=== PATIENT | female | born 1965 | race African-American/Black ===

== ENCOUNTER 2017-03-10 11:53 | Observation (INO) | payer MEDICARE, OTHER ==
[~2017-03-10] VITALS: Ht 162.6 cm; Wt 105.0 kg
[~2017-03-10 11:53] MED LIST: CLIN1CAP6 PO; EFAV200 PO; LORTA5 PO; TRUV200300 PO
[2017-03-10 12:04] VITALS: BP 183/102; PULSE 61; RESP 24; TEMP 98.3; O2SAT 100
--- NOTE | 2017-03-10 12:13 | PD ---
HPI Chief Complaint: Chest Pain Time Seen by Provider: 12:05 Travel History International Travel<30 days: No Contact w/Intl Traveler<30days: No History of Present Illness HPI Patient is a 51-year-old female presenting to the emergency via EMS for evaluation of chest pain. Patient states the pain started 2 days ago, has gotten significantly worse this morning. Patient reports her pain an 8 out of 10 pressure-like. She reports associated shortness of breath and diaphoresis. Patient states it's hard to breathe and she cannot lay flat. She states the chest pain is midsternal radiating to her left chest wall and back. She has felt nauseated but has not vomited. She reports a weird metallic taste in her mouth. She denies any abdominal pain, fever, chills, diarrhea. Patient's past medical history significant for hypertension, hyperlipidemia, HIV positive and she is compliant with anti-viral's. Patient was given 162 mg of aspirin en route per [facility] Past Medical History Arthritis: Yes (have in knees a few years ago) High Cholesterol: Yes Hypertension: Yes Immune Disorder: Yes (HIV) Neurologic: No Social History Alcohol Use: No Tobacco Use: No Substance Use: No Allergies-Medications (Allergen,Severity, Reaction): Coded Allergies: No Known Allergies (Unverified , 03/10/17) Reported Meds & Prescriptions Reported Meds & Active Scripts Active Reported Odefsey (Paoaxuxnpgmfc-Hzundsxztsr-Dmvdoaqls Alafenam) 200-200-25 Mg Tab 1 Tab PO DAILY Atorvastatin (Atorvastatin Calcium) 20 Mg Tab 20 Mg PO HS Lisinopril 20 Mg Tab 20 Mg PO DAILY Amlodipine (Amlodipine Besylate) 5 Mg Tab 5 Mg PO DAILY Review of Systems Except as stated in HPI: all other systems reviewed are Neg HENT: No: Lightheadedness Cardiovascular: Positive: Chest Pain or Discomfort, Diaphoresis, Dyspnea on exertion, No: Edema Respiratory: Positive: Shortness of Breath, Pleuritic Pain, No: Cough, Wheezing Gastrointestinal: Positive: Nausea, No: Vomiting, Diarrhea, Abdominal Pain Genitourinary: No: Dysuria Musculoskeletal: No: Myalgias Neurologic: Positive: Weakness, No: Dizziness, Syncope, Change in Mentation Physical Exam Narrative GENERAL: Well-developed, well-nourished, alert female. Appears uncomfortable, in no acute distress. SKIN: Warm and dry. HEAD: Atraumatic. Normocephalic. EYES: Pupils equal and round. No scleral icterus. No injection or drainage. ENT: No nasal bleeding or discharge. Mucous membranes pink and moist. NECK: Trachea midline. No JVD. CARDIOVASCULAR: Regular rate and rhythm. RESPIRATORY: No accessory muscle use. Mildly tachypneic, diminished in bases due to poor inspiratory effort. Breath sounds are equal, no wheezes, rhonchi, rales noted. GASTROINTESTINAL: Abdomen soft, non-tender, nondistended. Hepatic and splenic margins not palpable. MUSCULOSKELETAL: Extremities without clubbing, cyanosis, or edema. No obvious deformities. NEUROLOGICAL: Awake and alert. No obvious cranial nerve deficits. Motor grossly within normal limits. Five out of 5 muscle strength in the arms and legs. Normal speech. PSYCHIATRIC: Appropriate mood and affect; insight and judgment normal. Data Data Last Documented VS Vital Signs Date Time Temp Pulse Resp B/P (MAP) Pulse Ox O2 Delivery O2 Flow Rate FiO2 03/10/17 12:29 100 Room Air 03/10/17 12:29 20 03/10/17 12:04 98.3 61 183/102 (129) Orders Orders Electrocardiogram (03/10/17 12:03) B-Type Natriuretic Peptide (03/10/17 12:03) Ckmb (Isoenzyme) Profile (03/10/17 12:03) Complete Blood Count With Diff (03/10/17 12:03) Comprehensive Metabolic Panel (03/10/17 12:03) Magnesium (Mg) (03/10/17 12:03) Prothrombin Time / Inr (Pt) (03/10/17 12:03) Act Partial Throm Time (Ptt) (03/10/17 12:03) Troponin I (03/10/17 12:03) Chest, Single Ap (03/10/17 12:03) Ecg Monitoring (03/10/17 12:03) Bilateral Bp Monitoring (03/10/17 12:03) Iv Access Insert/Monitor (03/10/17 12:03) Oximetry (03/10/17 12:03) Oxygen Administration (03/10/17 12:03) Aspirin Chew (Aspirin Chew) (03/10/17 12:15) Morphine Inj (Morphine Inj) (03/10/17 12:15) Sodium Chloride 0.9% Flush (Ns Flush) (03/10/17 12:15) Ct Pulmonary Angiogram (03/10/17 12:03) Ondansetron Inj (Zofran Inj) (03/10/17 12:15) CKMB (03/10/17 12:20) CKMB% (03/10/17 12:20) Ketorolac Inj (Toradol Inj) (03/10/17 13:30) Iohexol 350 Inj (Omnipaque 350 Inj) (03/10/17 16:50) Admit Order (Ed Use Only) (03/10/17 17:34) Activity Bed Rest With Brp (03/10/17 17:34) Vital Signs (Adult) Q4H (03/10/17 17:34) Cardiac Rhythm .As Directed (03/10/17 17:34) Notify Dr: Other .PRN (03/10/17 17:34) Notify Dr. Parameters (03/10/17 17:34) Resp Oxygen Nasal Cannula (03/10/17 ) Ckmb (Isoenzyme) Profile (03/10/17 17:34) Ckmb (Isoenzyme) Profile (03/10/17 20:34) Troponin I (03/10/17 17:34) Troponin I (03/10/17 20:34) Electrocardiogram (03/10/17 17:34) Electrocardiogram (03/10/17 20:34) ^ Obtain (03/10/17 17:34) Sodium Chloride 0.9% Flush (Ns Flush) (03/10/17 17:45) Sodium Chloride 0.9% Flush (Ns Flush) (03/10/17 21:00) Acetaminophen (Tylenol) (03/10/17 17:45) Morphine Inj (Morphine Inj) (03/10/17 17:45) Ondansetron Inj (Zofran Inj) (03/10/17 17:45) Pantoprazole (Protonix) (03/11/17 09:00) Thread Separator / Telemetry VICENTE.Q8H (03/10/17 17:34) Hydralazine Inj (Apresoline Inj) (03/10/17 17:45) Labs Laboratory Tests Test 03/10/17 12:20 White Blood Count 4.4 TH/MM3 Red Blood Count 4.29 MIL/MM3 Hemoglobin 13.6 GM/DL Hematocrit 41.2 % Mean Corpuscular Volume 96.0 FL Mean Corpuscular Hemoglobin 31.6 PG Mean Corpuscular Hemoglobin Concent 32.9 % Red Cell Distribution Width 12.9 % Platelet Count 303 TH/MM3 Mean Platelet Volume 8.2 FL Neutrophils (%) (Auto) 50.1 % Lymphocytes (%) (Auto) 38.0 % Monocytes (%) (Auto) 8.9 % Eosinophils (%) (Auto) 2.3 % Basophils (%) (Auto) 0.7 % Neutrophils # (Auto) 2.2 TH/MM3 Lymphocytes # (Auto) 1.7 TH/MM3 Monocytes # (Auto) 0.4 TH/MM3 Eosinophils # (Auto) 0.1 TH/MM3 Basophils # (Auto) 0.0 TH/MM3 CBC Comment DIFF FINAL Differential Comment Prothrombin Time 10.6 SEC Prothromb Time International Ratio 1.0 RATIO Activated Partial Thromboplast Time 25.4 SEC Blood Urea Nitrogen 8 MG/DL Creatinine 1.09 MG/DL Random Glucose 88 MG/DL Total Protein 7.6 GM/DL Albumin 3.3 GM/DL Calcium Level 8.4 MG/DL Magnesium Level 1.8 MG/DL Alkaline Phosphatase 70 U/L Aspartate Amino Transf (AST/SGOT) 22 U/L Alanine Aminotransferase (ALT/SGPT) 27 U/L Total Bilirubin 0.3 MG/DL Sodium Level 142 MEQ/L Potassium Level 4.0 MEQ/L Chloride Level 109 MEQ/L Carbon Dioxide Level 25.8 MEQ/L Anion Gap 7 MEQ/L Estimat Glomerular Filtration Rate 64 ML/MIN Total Creatine Kinase 115 U/L Creatine Kinase MB LESS THAN 0.5 NG/ML Troponin I LESS THAN 0.02 NG/ML B-Type Natriuretic Peptide 38 PG/ML MDM Medical Decision Making Medical Screen Exam Complete: Yes Emergency Medical Condition: Yes Medical Record Reviewed: Yes Interpretation(s) Last Impressions Chest X-Ray 03/10/17 1203 Signed Impressions: Service Date/Time: Friday, March 10, 2017 12:15 - CONCLUSION: No acute cardiopulmonary abnormality is identified. Jovanni Barroso MD CT Angiography 03/10/17 1203 Signed Impressions: Service Date/Time: Friday, March 10, 2017 14:55 - CONCLUSION: No evidence of pulmonary embolism Jovanni Holbrook MD Laboratory Tests Test 03/10/17 12:20 White Blood Count 4.4 TH/MM3 Red Blood Count 4.29 MIL/MM3 Hemoglobin 13.6 GM/DL Hematocrit 41.2 % Mean Corpuscular Volume 96.0 FL Mean Corpuscular Hemoglobin 31.6 PG Mean Corpuscular Hemoglobin Concent 32.9 % Red Cell Distribution Width 12.9 % Platelet Count 303 TH/MM3 Mean Platelet Volume 8.2 FL Neutrophils (%) (Auto) 50.1 % Lymphocytes (%) (Auto) 38.0 % Monocytes (%) (Auto) 8.9 % Eosinophils (%) (Auto) 2.3 % Basophils (%) (Auto) 0.7 % Neutrophils # (Auto) 2.2 TH/MM3 Lymphocytes # (Auto) 1.7 TH/MM3 Monocytes # (Auto) 0.4 TH/MM3 Eosinophils # (Auto) 0.1 TH/MM3 Basophils # (Auto) 0.0 TH/MM3 CBC Comment DIFF FINAL Differential Comment Prothrombin Time 10.6 SEC Prothromb Time International Ratio 1.0 RATIO Activated Partial Thromboplast Time 25.4 SEC Blood Urea Nitrogen 8 MG/DL Creatinine 1.09 MG/DL Random Glucose 88 MG/DL Total Protein 7.6 GM/DL Albumin 3.3 GM/DL Calcium Level 8.4 MG/DL Magnesium Level 1.8 MG/DL Alkaline Phosphatase 70 U/L Aspartate Amino Transf (AST/SGOT) 22 U/L Alanine Aminotransferase (ALT/SGPT) 27 U/L Total Bilirubin 0.3 MG/DL Sodium Level 142 MEQ/L Potassium Level 4.0 MEQ/L Chloride Level 109 MEQ/L Carbon Dioxide Level 25.8 MEQ/L Anion Gap 7 MEQ/L Estimat Glomerular Filtration Rate 64 ML/MIN Total Creatine Kinase 115 U/L Creatine Kinase MB LESS THAN 0.5 NG/ML Troponin I LESS THAN 0.02 NG/ML B-Type Natriuretic Peptide 38 PG/ML Vital Signs Date Time Temp Pulse Resp B/P (MAP) Pulse Ox O2 Delivery O2 Flow Rate FiO2 03/10/17 12:29 100 Room Air 03/10/17 12:29 20 100 Room Air 03/10/17 12:04 98.3 61 24 183/102 (129) 100 Differential Diagnosis ACS versus USA versus pleurisy versus pneumonia versus pulmonary embolism versus other Narrative Course Patient is a 51-year-old female presented with 2 days of increasing shortness of breath and chest pain. Patient is unable to lay flat. She appears to be uncomfortable on arrival however her vital signs are stable. Labs and imaging ordered and pending. Morphine ordered for pain. CBC with no acute findings Chemistry reviewed, no acute findings identified. BNP unremarkable Cardiac enzymes are negative 1 set Chest x-ray shows no acute disease CT pulmonary angiogram with no pulmonary embolism, this is read by the radiologist. Patient reported mild improvement after the administration of morphine, her pain was further improved after the administration of Toradol. Due to patient's presenting complaint, progression of symptoms, past medical history she will be admitted to the chest pain center. Patient is agreeable, orders placed. Diagnosis Primary Impression: Chest pain Qualified Codes: R07.9 - Chest pain, unspecified Admitting Information Admitting Physician Requests: Observation Condition: Stable Cecilia Noble Mar 10, 2017 12:13
[2017-03-10] MEDS ORDERED: SODIUM CHLORIDE 0.9% FLUSH 10 ML FLUSH IVF PRN (12:15)
[2017-03-10] MEDS ORDERED: ONDANSETRON HCL 4 MG/2 ML VIAL IV PUSH ONE (12:15)
[2017-03-10] MEDS ORDERED: ASPIRIN 81 MG CHEW TAB PO ONE (12:15)
[2017-03-10] MEDS ORDERED: MORPHINE SULFATE 4 MG/ML INJ IV PUSH ONE (12:15)
[2017-03-10 12:29] VITALS: RESP 20; O2SAT 100
--- NOTE | 2017-03-10 12:37 | RADRPT ---
EXAM DATE/TIME: 03/10/2017 12:15 [facility] COMPARISON: CHEST SINGLE AP, December 31, 2014, 14:53. INDICATIONS : Chest pain. MEDICAL HISTORY : None. SURGICAL HISTORY : None. ENCOUNTER: Initial ACUITY: 2 days PAIN SCORE: 10/10 LOCATION: Left middle chest FINDINGS: Portable AP view of the chest demonstrates a normal-sized cardiac silhouette. No effusion, consolidat ion, or pneumothorax is visualized. The bones and soft tissues demonstrate no acute abnormality. CONCLUSION: No acute cardiopulmonary abnormality is identified. Jovanni Barroso MD on March 10, 2017 at 12:35 Board Certified Radiologist. This report was verified electronically.
[2017-03-10 12:42] LABS: AUTOMATED NEUTROPHIL # 2.2 TH/MM3 (1.8-7.7); BASOPHIL % 0.7 % (0.0-2.0); EOSINOPHIL # 0.1 TH/MM3 (0-0.4); EOSINOPHIL % 2.3 % (0.0-4.0); HEMATOCRIT 41.2 % (35.0-46.0); HEMO FLAGS DIFF FINAL; LYMPHOCYTE # 1.7 TH/MM3 (1.0-4.8); MEAN CORPUSCULAR HEMOGLOBIN 31.6 PG (27.0-34.0); MEAN CORPUSCULAR HGB CONC 32.9 % (32.0-36.0); MONO % 8.9 % (0.0-8.0); NEUT % 50.1 % (16.0-70.0); PLATELET COUNT 303 TH/MM3 (150-450); RED BLOOD COUNT 4.29 MIL/MM3 (4.00-5.30); RED CELL DISTRIBUTION WIDTH 12.9 % (11.6-17.2); WHITE BLOOD COUNT 4.4 TH/MM3 (4.0-11.0)
[2017-03-10 12:44] LABS: APTT (PATIENT) 25.4 SEC (24.3-30.1); PROTHROMBIN TIME - PATIENT 10.6 SEC (9.8-11.6)
[2017-03-10] MEDS ORDERED: LISI-515 PO (12:47)
[2017-03-10] MEDS ORDERED: ATOR20TA15 PO (12:47)
[2017-03-10] MEDS ORDERED: AMLO5TAB2 PO (12:47)
[2017-03-10] MEDS ORDERED: EMTR1TAB2 PO (12:47)
[2017-03-10 12:48] LABS: ALT (GPT) 27 U/L (10-53); ANION GAP 7 MEQ/L (5-15); AST (GOT) 22 U/L (15-37); BICARBONATE 25.8 MEQ/L (21.0-32.0); BLOOD UREA NITROGEN 8 MG/DL (7-18); CHLORIDE 109 MEQ/L (98-107); GLOMERULAR FILTRATION RATE 64 ML/MIN (>89); MAGNESIUM 1.8 MG/DL (1.5-2.5); SODIUM (NA) 142 MEQ/L (136-145)
[2017-03-10 12:52] LABS: ALKALINE PHOSPHATASE 70 U/L (45-117); CREATINE KINASE 115 U/L (26-192); TOTAL BILIRUBIN ADULT 0.3 MG/DL (0.2-1.0)
[2017-03-10 13:05] LABS: CKMB LESS THAN 0.5 NG/ML (0.5-3.6)
[2017-03-10] MEDS ORDERED: KETOROLAC TROMETHAMINE 30 MG/ML (IVP) VIAL IV PUSH ONE (13:30)
[2017-03-10] MEDS ORDERED: IOHEXOL 350 MG/ML 10 ML VIAL (for RAD DIAG) IVCONTRAST ONE (16:50)
--- NOTE | 2017-03-10 17:23 | RADRPT ---
EXAM DATE/TIME: 03/10/2017 14:55 [facility] COMPARISON: No previous studies available for comparison. INDICATIONS : Left side chest pain IV CONTRAST: 75 cc Omnipaque 350 (iohexol) IV RADIATION DOSE: 21.52 CTDIvol (mGy) MEDICAL HISTORY : Hypertension. HIV. SURGICAL HISTORY : None. ENCOUNTER: Initial ACUITY: 2 days PAIN SCALE: 5/10 LOCATION: Left chest TECHNIQUE: Volumetric scanning of the chest was performed using a pulmonary embolism protocol MIP images were re constructed. Using automated exposure control and adjustment of the mA and/or kV according to patien t size, radiation dose was kept as low as reasonably achievable to obtain optimal diagnostic quality images. DICOM format image data is available electronically for review and comparison. Follow-up recommendations for detected pulmonary nodules are based at a minimum on nodule size and pa tient risk factors according to Fleischner Society Guidelines. FINDINGS: PULMONARY ARTERIES: No filling defects are seen in the pulmonary arteries through the segmental level. LUNGS: Minimal basilar atelectasis. PLEURAE: There is no pleural thickening or pleural effusion. MEDIASTINUM: There is good visualization of the great vessels of the middle mediastinum. No evidence of mediastin al or hilar adenopathy/mass. MUSCULOSKELETAL: Within normal limits for patient age. MISCELLANEOUS: The visualized upper abdominal organs demonstrate no acute abnormality. CONCLUSION: No evidence of pulmonary embolism Jovanni Holbrook MD on March 10, 2017 at 17:17 Board Certified Radiologist. This report was verified electronically.
[2017-03-10] MEDS ORDERED: SODIUM CHLORIDE 0.9% FLUSH 10 ML FLUSH IV FLUSH PRN (17:45)
[2017-03-10] MEDS ORDERED: ONDANSETRON HCL 4 MG/2 ML VIAL IV PUSH PRN (17:45)
[2017-03-10] MEDS ORDERED: hydrALAZINE HCL 20 MG/ML VIAL IV PUSH ONE (17:45)
[2017-03-10] MEDS ORDERED: ACETAMINOPHEN 500 MG CPLT PO PRN (17:45)
[2017-03-10] MEDS ORDERED: MORPHINE SULFATE 4 MG/ML INJ IV PUSH PRN (17:45)
[2017-03-10 18:57] VITALS: BP 146/87; PULSE 52; RESP 18; O2SAT 100
[2017-03-10 20:25] LABS: CREATINE KINASE 115 U/L (26-192)
[2017-03-10 20:37] LABS: CKMB 0.6 NG/ML (0.5-3.6)
[2017-03-10 21:33] VITALS: BP 134/74; PULSE 52; RESP 18; TEMP 98.4; O2SAT 100
[2017-03-10 23:40] LABS: CREATINE KINASE 110 U/L (26-192)
[2017-03-11] VITALS (7 sets, daily range): BP systolic 115–127; BP diastolic 64–73; PULSE 51–57; RESP 17–20; TEMP 98–98.5; O2SAT 95–98
[2017-03-11] MEDS: NITROGLYCERIN 2% OINT 1 GM PACKET TOPICAL SCH ×2 (00:37→06:00)
[2017-03-11] MEDS: SODIUM CHLORIDE 0.9% FLUSH 10 ML FLUSH IV FLUSH SCH ×2 (00:38→07:51)
[2017-03-11] MEDS ORDERED: ASPIRIN 81 MG CHEW TAB PO ONE (01:08)
[2017-03-11] MEDS: MORPHINE SULFATE 4 MG/ML INJ IV PRN ×2 (02:33→07:55)
[2017-03-11] MEDS ORDERED: KETOROLAC TROMETHAMINE 30 MG/ML (IVP) VIAL IVP ONE (08:00)
--- NOTE | 2017-03-11 08:29 | HHI.DCPOC ---
Discharge Care Plan Diagnosis: (1) Hypertension (2) Hyperlipidemia (3) Chest pain (4) HIV (human immunodeficiency virus infection) Goals to Promote Your Health * To prevent worsening of your condition and complications * To maintain your health at the optimal level Directions to Meet Your Goals Take your medications as prescribed Follow your dietary instruction Follow activity as directed Keep your appointments as scheduled Take your immunizations and boosters as scheduled If your symptoms worsen call your PCP, if no PCP go to Urgent Care Center or Emergency Room Smoking is Dangerous to Your Health. Avoid second hand smoke Call the 24-hour hour crisis hotline for domestic abuse at Conor Gomez Mar 11, 2017 08:29
[2017-03-11] MEDS ORDERED: PANTOPRAZOLE SOD 40 MG DELAYED RELEASE TAB PO SCH (09:00)
[2017-03-11] MEDS ORDERED: ASPIRIN 81 MG CHEW TAB PO SCH (09:00)
--- NOTE | 2017-03-11 09:43 | EKG ---
Date Performed: 03/10/2017 Time Performed: 19:13:52 PTAGE: 51 years EKG: SINUS BRADYCARDIA Compared to prior tracing no significant change BORDERLINE ECG PREVIOUS TRACING : 03/10/2017 12.06 DOCTOR: Jovani Paredes Interpretating Date/Time 03/11/2017 09:43:08
--- NOTE | 2017-03-11 09:43 | EKG ---
Date Performed: 03/10/2017 Time Performed: 12:06:52 PTAGE: 51 years EKG: SINUS BRADYCARDIA Compared to previous tracing, sinus rate is slower BORDERLINE ECG PREVIOUS TRACING : 12/31/14 @ 1500 DOCTOR: Jovani Paredes Interpretating Date/Time 03/11/2017 09:43:01
--- NOTE | 2017-03-11 09:48 | EKG ---
Date Performed: 03/10/2017 Time Performed: 22:33:26 PTAGE: 51 years EKG: SINUS BRADYCARDIA MODERATE INTRAVENTRICULAR CONDUCTION DELAY BORDERLINE ECG AGREE NO SIG CH AMBER PREVIOUS TRACING : 03/10/2017 19.13 DOCTOR: Joe Parrish Interpretating Date/Time 03/11/2017 09:47:52
--- NOTE | 2017-03-11 12:24 | HHI.HP ---
HPI Primary Care Physician Unknown Chief Complaint Chest pain History of Present Illness This is a 51-year-old female that presents to ED with a complaint of 5 days a constant chest discomfort. She states it began while she got up quickly to put fabric softener in her washing machine. The discomfort has never left. Little shortness of breath area discomfort is worsened with certain movements. Denies nausea or diaphoresis. Denies history of CAD. Denies recent illness. Denies recent travel. Review of Systems General: Patient denies fevers, chills recent, and recent travel HEENT: Patient denies headache, sore throat, difficulty swallowing. Cardiovascular: Has the chest discomfort as mentioned above. Denies sensation of heart beating rapidly or irregularly. No syncope. Denies diaphoresis. Respiratory: Occasional shortness of breath. Denies inspirational chest discomfort. Denies coughing wheezing or hemoptysis. GI: Patient denies nausea, vomiting, diarrhea, abdominal pain, bloody stools. Musculoskeletal: Patient denies joint pain or edema. Denies calf pain or edema. Neurovascular: Patient denies numbness, tingling, weakness in extremities. Denies headache. Endocrine: Denies polyuria and polydipsia. Hematologic: Denies easy bruising. Skin: Denies rash or itching. Past Family Social History Allergies: Coded Allergies: No Known Allergies (Unverified , 03/10/17) Past Medical History Hypertension, hyperlipidemia, and HIV which she states it diagnosed 2003. Reports compliance with her medications. Denies diabetes and CAD. Past Surgical History Noncontributory. Reported Medications Reported Meds & Active Scripts Active Reported Odefsey (Tdeaxrqgdszde-Ktngiwvhcwj-Tgxllxczw Alafenam) 200-200-25 Mg Tab 1 Tab PO DAILY Atorvastatin (Atorvastatin Calcium) 20 Mg Tab 20 Mg PO HS Lisinopril 20 Mg Tab 20 Mg PO DAILY Amlodipine (Amlodipine Besylate) 5 Mg Tab 5 Mg PO DAILY Family History Denies family history of CAD. Social History Patient quit smoking 1 year ago but prior that she smoked one third pack of cigarettes daily for 10 years. Has occasional marijuana. Denies illicit drugs. Physical Exam Vital Signs Vital Signs Date Time Temp Pulse Resp B/P (MAP) Pulse Ox O2 Delivery O2 Flow Rate FiO2 03/11/17 09:59 20 03/11/17 09:48 21 03/11/17 09:09 54 03/11/17 07:07 98.5 56 17 127/71 (89) 98 03/11/17 06:26 21 03/11/17 04:00 52 03/11/17 03:41 98.0 51 18 124/73 (90) 95 03/11/17 02:29 98.2 55 18 115/64 (81) 97 03/11/17 00:00 57 03/10/17 21:33 98.4 52 18 134/74 (94) 100 03/10/17 18:57 52 18 146/87 (106) 100 Room Air 03/10/17 12:29 100 Room Air 03/10/17 12:29 20 100 Room Air Physical Exam GENERAL: This is a well-nourished, well-developed patient, in no apparent distress. Patient speaks in clear complete sentences. Patient is pleasant. HEENT: Head is atraumatic and normocephalic. Neck is supple without lymphadenopathy and trachea is midline. No JVD or carotid bruits. CARDIOVASCULAR: Regular rate and rhythm without murmurs, gallops, or rubs. RESPIRATORY: Clear to auscultation. Breath sounds equal bilaterally. No wheezes , rales, or rhonchi. Chest wall is tender over the sternum which reproduces the discomfort she has been having. No use of accessory muscles. GASTROINTESTINAL: Abdomen is nontender, nondistended. Abdomen soft. No obvious pulsatile mass or bruit. No CVA tenderness. Strong femoral pulses bilaterally. Normal bowel sounds in all quadrants. MUSCULOSKELETAL: Patient is moving upper and lower extremities freely. No calf tenderness or edema, no Homans sign. Strong pulses in upper and lower extremities. NEUROLOGICAL: Patient is alert and oriented. Cranial nerves 2-12 are grossly intact. No focal deficits and speech is clear. SKIN: No rash and turgor is normal. Laboratory Laboratory Tests Test 03/10/17 12:20 03/10/17 19:30 03/10/17 20:52 White Blood Count 4.4 Red Blood Count 4.29 Hemoglobin 13.6 Hematocrit 41.2 Mean Corpuscular Volume 96.0 Mean Corpuscular Hemoglobin 31.6 Mean Corpuscular Hemoglobin Concent 32.9 Red Cell Distribution Width 12.9 Platelet Count 303 Mean Platelet Volume 8.2 Neutrophils (%) (Auto) 50.1 Lymphocytes (%) (Auto) 38.0 Monocytes (%) (Auto) 8.9 Eosinophils (%) (Auto) 2.3 Basophils (%) (Auto) 0.7 Neutrophils # (Auto) 2.2 Lymphocytes # (Auto) 1.7 Monocytes # (Auto) 0.4 Eosinophils # (Auto) 0.1 Basophils # (Auto) 0.0 CBC Comment DIFF FINAL Differential Comment Prothrombin Time 10.6 Prothromb Time International Ratio 1.0 Activated Partial Thromboplast Time 25.4 Blood Urea Nitrogen 8 Creatinine 1.09 Random Glucose 88 Total Protein 7.6 Albumin 3.3 Calcium Level 8.4 Magnesium Level 1.8 Alkaline Phosphatase 70 Aspartate Amino Transf (AST/SGOT) 22 Alanine Aminotransferase (ALT/SGPT) 27 Total Bilirubin 0.3 Sodium Level 142 Potassium Level 4.0 Chloride Level 109 Carbon Dioxide Level 25.8 Anion Gap 7 Estimat Glomerular Filtration Rate 64 Total Creatine Kinase 115 115 110 Creatine Kinase MB LESS THAN 0.5 0.6 Troponin I LESS THAN 0.02 LESS THAN 0.02 LESS THAN 0.02 B-Type Natriuretic Peptide 38 Result Diagram: 03/10/17 1220 03/10/17 1220 Imaging Last 48 hours Impressions Chest X-Ray 03/10/17 1203 Signed Impressions: Service Date/Time: Friday, March 10, 2017 12:15 - CONCLUSION: No acute cardiopulmonary abnormality is identified. Jovanni Barroso MD CT Angiography 03/10/17 1203 Signed Impressions: Service Date/Time: Friday, March 10, 2017 14:55 - CONCLUSION: No evidence of pulmonary embolism Jovanni Holbrook MD Course EKGs are sinus rhythm without significant ST segment depressions or elevations. Caprini VTE Risk Assessment Caprini VTE Risk Assessment: No/Low Risk (score <= 1) Caprini Risk Assessment Model Point Value = 1 Point Value = 2 Point Value = 3 Point Value = 5 Age 41-60 Minor surgery BMI > 25 kg/m2 Swollen legs Varicose veins or History of unexplained or recurrent spontaneous Oral contraceptives or hormone replacement Sepsis (< 1 month) Serious lung disease, including pneumonia (< 1 month) Abnormal pulmonary function Acute myocardial infarction Congestive heart failure (< 1 month) History of inflammatory bowel disease Medical patient at bed rest Age 61-74 Arthroscopic surgery Major open surgery (> 45 min) Laparoscopic surgery (> 45 min) Malignancy Confined to bed (> 72 hours) Immobilizing plaster cast Central venous access Age >= 75 History of VTE Family history of VTE Factor V Leiden Prothrombin [id number] Lupus anticoagulant Anticardiolipin antibodies Elevated serum homocysteine Heparin-induced thrombocytopenia Other congenital or acquired thrombophilia Stroke (< 1 month) Elective arthroplasty Hip, pelvis, or leg fracture Acute spinal cord injury (< 1 month) Prophylaxis Regimen Total Risk Factor Score Risk Level Prophylaxis Regimen 0-1 Low Early ambulation 2 Moderate Order ONE of the following: *Sequential Compression Device (SCD) *Heparin 5000 units SQ BID 3-4 Higher Order ONE of the following medications: *Heparin 5000 units SQ TID *Enoxaparin/Lovenox 40 mg SQ daily (WT < 150 kg, CrCl > 30 mL/min) *Enoxaparin/Lovenox 30 mg SQ daily (WT < 150 kg, CrCl > 10-29 mL/min) *Enoxaparin/Lovenox 30 mg SQ BID (WT < 150 kg, CrCl > 30 mL/min) AND/OR *Sequential Compression Device (SCD) 5 or more Highest Order ONE of the following medications: *Heparin 5000 units SQ TID (Preferred with Epidurals) *Enoxaparin/Lovenox 40 mg SQ daily (WT < 150 kg, CrCl > 30 mL/min) *Enoxaparin/Lovenox 30 mg SQ daily (WT < 150 kg, CrCl > 10-29 mL/min) *Enoxaparin/Lovenox 30 mg SQ BID (WT < 150 kg, CrCl > 30 mL/min) AND *Sequential Compression Device (SCD) Assessment and Plan Assessment and Plan * Chest pain: Her symptoms are atypical.. Be musculoskeletal in nature. Patient was seen by Dr. Parrish of cardiology in the chest pain center and will be discharged home at this time. She was given Toradol. She should follow-up with PCP. * Hypertension: Continue current medication. * HIV: Continue current medication. * Hyperlipidemia: Continue current medication. * Tobacco abuse: Patient has been counseled on importance of smoking cessation. Patient is stable at this time. She is agreeable to this plan. Conor Gomez Mar 11, 2017 12:24
== END 2017-03-11 10:36 | disposition home or self-care (01) ==
LOC: NEPC 11:53 → NEDA 17:46 → NEPGCP 21:24
PROVIDERS: ADMIT Internal Medicine Interventional Cardiology; ATTEND Internal Medicine Interventional Cardiology
DX: R07.9 Chest pain, unspecified (principal); I10 Essential (primary) hypertension; E78.5 Hyperlipidemia, unspecified; B20 Human immunodeficiency virus [HIV] disease; R94.31 Abnormal electrocardiogram [ECG] [EKG]; F12.90 Cannabis use, unspecified, uncomplicated; F17.200 Nicotine dependence, unspecified, uncomplicated
CPT/HCPCS: 71010; 71275; 80053; 82550; 82552; 83735; 83880; 84484; 85025; 85610; 85730; 93005; 96374; 96375; 96376; 99285; G0378; J1885; J2270; J2405; Q9967

== ENCOUNTER 2017-08-03 14:48 | Emergency (ER) | payer MEDICARE, OTHER ==
[~2017-08-03] VITALS: Ht 162.6 cm; Wt 116.0 kg
[~2017-08-03 14:48] MED LIST changes: +AMLO5TAB2 PO; +ATOR20TA15 PO; -CLIN1CAP6 PO; -EFAV200 PO; +EMTR1TAB2 PO; +LISI-515 PO; -LORTA5 PO; -TRUV200300 PO
[2017-08-03 15:09] VITALS: BP 104/60; PULSE 104; RESP 24; TEMP 100.2; O2SAT 98
[2017-08-03 16:11] LABS: ALBUMIN 3.9 GM/DL (3.4-5.0); AST (GOT) 51 U/L (15-37); BICARBONATE 24.6 MEQ/L (21.0-32.0); BLOOD UREA NITROGEN 18 MG/DL (7-18); CALCIUM 9.2 MG/DL (8.5-10.1); CHLORIDE 105 MEQ/L (98-107); CREATININE 1.91 MG/DL (0.50-1.00); GLOMERULAR FILTRATION RATE 33 ML/MIN (>89); GLUCOSE,RANDOM 116 MG/DL (74-106); SODIUM (NA) 138 MEQ/L (136-145)
[2017-08-03 16:12] LABS: ALT (GPT) 45 U/L (10-53)
[2017-08-03 16:14] LABS: ALKALINE PHOSPHATASE 81 U/L (45-117); TOTAL BILIRUBIN ADULT 0.3 MG/DL (0.2-1.0); TOTAL PROTEIN 8.7 GM/DL (6.4-8.2)
[2017-08-03 16:27] LABS: AUTOMATED NEUTROPHIL # 1.3 TH/MM3 (1.8-7.7); BASOPHIL % 0.9 % (0.0-2.0); EOSINOPHIL % 0.1 % (0.0-4.0); HEMATOCRIT 47.4 % (35.0-46.0); HEMOGLOBIN 16.2 GM/DL (11.6-15.3); LYMPH % 41.8 % (9.0-44.0); LYMPHOCYTE # 1.3 TH/MM3 (1.0-4.8); MEAN CELL VOLUME 94.7 FL (80.0-100.0); MEAN CORPUSCULAR HEMOGLOBIN 32.3 PG (27.0-34.0); MEAN CORPUSCULAR HGB CONC 34.1 % (32.0-36.0); MEAN PLATELET VOLUME 8.5 FL (7.0-11.0); MONOCYTE # 0.5 TH/MM3 (0-0.9); NEUT % 42.2 % (16.0-70.0); PLATELET COUNT 277 TH/MM3 (150-450); WHITE BLOOD COUNT 3.1 TH/MM3 (4.0-11.0)
--- NOTE | 2017-08-03 16:45 | PD ---
HPI Chief Complaint: Cold / Flu Symptoms Time Seen by Provider: 16:44 Travel History International Travel<30 days: No Contact w/Intl Traveler<30days: No Traveled to known affect area: No History of Present Illness HPI 52-year-old female history of HIV states her viral load is undetectable, presents to the emergency department for evaluation of fever, body aches, nausea , vomiting and diarrhea over the last 2 days. Patient has been increasingly fatigued. She has had a mild cough. She denies any other symptoms at this time. PFSH Past Medical History Arthritis: Yes (have in knees a few years ago) Heart Rhythm Problems: No Cardiac Catheterization: No Cardiovascular Problems: Yes High Cholesterol: Yes Congestive Heart Failure: No Diabetes: No Headaches: Yes (H/A since 12/27/14) Hypertension: Yes Immune Disorder: Yes (HIV) Neurologic: No Past Surgical History Coronary Artery Bypass Graft: No Other Surgery: No Social History Alcohol Use: Yes (OCC) Tobacco Use: No Substance Use: No Allergies-Medications (Allergen,Severity, Reaction): Coded Allergies: No Known Allergies (Unverified , 03/10/17) Reported Meds & Prescriptions Reported Meds & Active Scripts Active Zofran Odt (Ondansetron Odt) 4 Mg Tab 4 Mg SL Q8HR PRN Reported Odefsey (Qmofhiarbryhf-Ggpgdyefvgz-Xfcqwwgbv Alafenam) 200-200-25 Mg Tab 1 Tab PO DAILY Atorvastatin (Atorvastatin Calcium) 20 Mg Tab 20 Mg PO HS Lisinopril 20 Mg Tab 20 Mg PO DAILY Amlodipine (Amlodipine Besylate) 5 Mg Tab 5 Mg PO DAILY Review of Systems Except as stated in HPI: all other systems reviewed are Neg Physical Exam Narrative GENERAL: Well-nourished female patient in no acute distress SKIN: Focused skin assessment warm/dry. HEAD: Atraumatic. Normocephalic. EYES: Pupils equal and round. No scleral icterus. No injection or drainage. ENT: No nasal bleeding or discharge. Mucous membranes pink and moist. Pharynx with erythema without exudate NECK: Trachea midline. No JVD. CARDIOVASCULAR: Tachycardic rate and rhythm. No murmur appreciated. RESPIRATORY: No accessory muscle use. Clear to auscultation. Breath sounds equal bilaterally. GASTROINTESTINAL: Abdomen soft, non-tender, nondistended. Hepatic and splenic margins not palpable. MUSCULOSKELETAL: No obvious deformities. No clubbing. No cyanosis. No edema. NEUROLOGICAL: Awake and alert. No obvious cranial nerve deficits. Motor grossly within normal limits. Normal speech. PSYCHIATRIC: Appropriate mood and affect; insight and judgment normal. Data Data Last Documented VS Vital Signs Date Time Temp Pulse Resp B/P (MAP) Pulse Ox O2 Delivery O2 Flow Rate FiO2 08/03/17 18:40 70 17 131/61 (84) 100 08/03/17 15:09 100.2 Room Air Orders Orders Complete Blood Count With Diff (08/03/17 15:26) Comprehensive Metabolic Panel (08/03/17 15:26) Influenzae A/B Antigen (08/03/17 15:26) Iv Access Insert/Monitor (08/03/17 16:50) Group A Rapid Strep Screen (08/03/17 16:50) Sodium Chlor 0.9% 1000 Ml Inj (Ns 1000 M (08/03/17 17:00) Urinalysis - C+S If Indicated (08/03/17 16:51) Chest, Single Ap (08/03/17 ) Strep Culture (Group A) (08/03/17 16:00) Ondansetron Inj (Zofran Inj) (08/03/17 17:45) Sodium Chlor 0.9% 1000 Ml Inj (Ns 1000 M (08/03/17 17:45) Acetaminophen 1000 Mg/100 Ml (Ofirmev 10 (08/03/17 18:00) Ed Discharge Order (08/03/17 18:06) Labs Laboratory Tests Test 08/03/17 15:40 08/03/17 17:00 White Blood Count 3.1 TH/MM3 Red Blood Count 5.00 MIL/MM3 Hemoglobin 16.2 GM/DL Hematocrit 47.4 % Mean Corpuscular Volume 94.7 FL Mean Corpuscular Hemoglobin 32.3 PG Mean Corpuscular Hemoglobin Concent 34.1 % Red Cell Distribution Width 13.0 % Platelet Count 277 TH/MM3 Mean Platelet Volume 8.5 FL Neutrophils (%) (Auto) 42.2 % Lymphocytes (%) (Auto) 41.8 % Monocytes (%) (Auto) 15.0 % Eosinophils (%) (Auto) 0.1 % Basophils (%) (Auto) 0.9 % Neutrophils # (Auto) 1.3 TH/MM3 Lymphocytes # (Auto) 1.3 TH/MM3 Monocytes # (Auto) 0.5 TH/MM3 Eosinophils # (Auto) 0.0 TH/MM3 Basophils # (Auto) 0.0 TH/MM3 CBC Comment DIFF FINAL Differential Comment Blood Urea Nitrogen 18 MG/DL Creatinine 1.91 MG/DL Random Glucose 116 MG/DL Total Protein 8.7 GM/DL Albumin 3.9 GM/DL Calcium Level 9.2 MG/DL Alkaline Phosphatase 81 U/L Aspartate Amino Transf (AST/SGOT) 51 U/L Alanine Aminotransferase (ALT/SGPT) 45 U/L Total Bilirubin 0.3 MG/DL Sodium Level 138 MEQ/L Potassium Level 3.9 MEQ/L Chloride Level 105 MEQ/L Carbon Dioxide Level 24.6 MEQ/L Anion Gap 8 MEQ/L Estimat Glomerular Filtration Rate 33 ML/MIN Urine Color DARK-YELLOW Urine Turbidity HAZY Urine pH 6.0 Urine Specific [place] 1.034 Urine Protein 300 mg/dL Urine Glucose (UA) NEG mg/dL Urine Ketones 10 mg/dL Urine Occult Blood NEG Urine Nitrite NEG Urine Bilirubin NEG Urine Urobilinogen 2.0 MG/DL Urine Leukocyte Esterase NEG Urine RBC 3 /hpf Urine WBC 6 /hpf Urine Squamous Epithelial Cells 23 /hpf Urine Hyaline Casts 40 /lpf Urine Mucus MANY /lpf Microscopic Urinalysis Comment CULT NOT INDICATED MDM Medical Decision Making Medical Screen Exam Complete: Yes Emergency Medical Condition: Yes Medical Record Reviewed: Yes Differential Diagnosis Influenza versus gastroenteritis versus sepsis Narrative Course 52-year-old female presents to emergency department for evaluation. Patient appears nontoxic. She has had some nausea, vomiting, diarrhea. Influenza screen is negative. I discussed the patient my attending physician is also assess the patient. Patient be discharged home to follow-up with primary care provider. She agrees to return immediately with any acute worsening symptoms. Diagnosis Primary Impression: Nausea & vomiting Qualified Codes: R11.2 - Nausea with vomiting, unspecified Additional Impressions: Diarrhea Qualified Codes: R19.7 - Diarrhea, unspecified Flu-like symptoms Referrals: Primary Care Physician Patient Instructions: General Instructions, Influenza (ED) Additional Instructions: Rest Maintain adequate oral hydration Follow-up with a primary care provider Return immediately with any acute worsening of symptoms Med/Other Pt SpecificInfo: Prescription(s) given Scripts Ondansetron Odt (Zofran Odt) 4 Mg Tab 4 MG SL Q8HR Y for Nausea/Vomiting, #10 TAB 0 Refills Prov: Rachelle Dee 08/03/17 Disposition: 01 DISCHARGE HOME Condition: Stable Rachelle Dee Aug 03, 2017 16:45
[2017-08-03] MEDS ORDERED: SODIUM CHLOR 0.9% 1000 ML INJ 1,000 ML IV ONE ×2 (17:00→17:45)
--- NOTE | 2017-08-03 17:38 | RADRPT ---
EXAM DATE/TIME: 08/03/2017 17:10 [facility] COMPARISON: CHEST SINGLE AP, March 10, 2017, 12:15. INDICATIONS : Short of breath. MEDICAL HISTORY : None. SURGICAL HISTORY : None. ENCOUNTER: Initial ACUITY: 4 - 6 days PAIN SCORE: 7/10 LOCATION: Bilateral chest FINDINGS: A single view of the chest demonstrates the lungs to be symmetrically aerated without evidence of mas s, infiltrate or effusion. The cardiomediastinal contours are unremarkable. Osseous structures are intact. CONCLUSION: No acute disease. Gilbert Ag Jr., MD on August 03, 2017 at 17:26 Board Certified Radiologist. This report was verified electronically.
[2017-08-03 17:39] LABS: BILIRUBIN, URINE NEG (NEG); BLOOD, URINE NEG (NEG); GLUCOSE,URINE NEG (NEG); HYALINE CAST, URINE 40 /lpf (RARE); KETONE, URINE 10 mg/dL (NEG); MUCUS URINE MANY /lpf (OCC); NITRITE,URINE NEG (NEG); SQUAMOUS EPITHELIAL CELL URINE 23 /hpf (0-5); URINE COLOR DARK-YELLOW (YELLW/STRAW); URINE LEUKOCYTE ESTERASE NEG (NEG)
[2017-08-03] MEDS ORDERED: ONDANSETRON HCL 4 MG/2 ML VIAL IV PUSH ONE (17:45)
[2017-08-03] MEDS ORDERED: ACETAMINOPHEN 1000 MG/100 ML 100 ML IV ONE (18:00)
[2017-08-03] MEDS ORDERED: ZOFR4TAB3 SL (18:08)
--- NOTE | 2017-08-03 18:15 | PD ---
Data Data Last Documented VS Vital Signs Date Time Temp Pulse Resp B/P (MAP) Pulse Ox O2 Delivery O2 Flow Rate FiO2 08/03/17 15:09 100.2 104 24 104/60 (75) 98 Room Air Orders Orders Complete Blood Count With Diff (08/03/17 15:26) Comprehensive Metabolic Panel (08/03/17 15:26) Influenzae A/B Antigen (08/03/17 15:26) Iv Access Insert/Monitor (08/03/17 16:50) Group A Rapid Strep Screen (08/03/17 16:50) Sodium Chlor 0.9% 1000 Ml Inj (Ns 1000 M (08/03/17 17:00) Urinalysis - C+S If Indicated (08/03/17 16:51) Chest, Single Ap (08/03/17 ) Strep Culture (Group A) (08/03/17 16:00) Ondansetron Inj (Zofran Inj) (08/03/17 17:45) Sodium Chlor 0.9% 1000 Ml Inj (Ns 1000 M (08/03/17 17:45) Acetaminophen 1000 Mg/100 Ml (Ofirmev 10 (08/03/17 18:00) Ed Discharge Order (08/03/17 18:06) Labs Laboratory Tests Test 08/03/17 15:40 08/03/17 17:00 White Blood Count 3.1 TH/MM3 Red Blood Count 5.00 MIL/MM3 Hemoglobin 16.2 GM/DL Hematocrit 47.4 % Mean Corpuscular Volume 94.7 FL Mean Corpuscular Hemoglobin 32.3 PG Mean Corpuscular Hemoglobin Concent 34.1 % Red Cell Distribution Width 13.0 % Platelet Count 277 TH/MM3 Mean Platelet Volume 8.5 FL Neutrophils (%) (Auto) 42.2 % Lymphocytes (%) (Auto) 41.8 % Monocytes (%) (Auto) 15.0 % Eosinophils (%) (Auto) 0.1 % Basophils (%) (Auto) 0.9 % Neutrophils # (Auto) 1.3 TH/MM3 Lymphocytes # (Auto) 1.3 TH/MM3 Monocytes # (Auto) 0.5 TH/MM3 Eosinophils # (Auto) 0.0 TH/MM3 Basophils # (Auto) 0.0 TH/MM3 CBC Comment DIFF FINAL Differential Comment Blood Urea Nitrogen 18 MG/DL Creatinine 1.91 MG/DL Random Glucose 116 MG/DL Total Protein 8.7 GM/DL Albumin 3.9 GM/DL Calcium Level 9.2 MG/DL Alkaline Phosphatase 81 U/L Aspartate Amino Transf (AST/SGOT) 51 U/L Alanine Aminotransferase (ALT/SGPT) 45 U/L Total Bilirubin 0.3 MG/DL Sodium Level 138 MEQ/L Potassium Level 3.9 MEQ/L Chloride Level 105 MEQ/L Carbon Dioxide Level 24.6 MEQ/L Anion Gap 8 MEQ/L Estimat Glomerular Filtration Rate 33 ML/MIN Urine Color DARK-YELLOW Urine Turbidity HAZY Urine pH 6.0 Urine Specific [place] 1.034 Urine Protein 300 mg/dL Urine Glucose (UA) NEG mg/dL Urine Ketones 10 mg/dL Urine Occult Blood NEG Urine Nitrite NEG Urine Bilirubin NEG Urine Urobilinogen 2.0 MG/DL Urine Leukocyte Esterase NEG Urine RBC 3 /hpf Urine WBC 6 /hpf Urine Squamous Epithelial Cells 23 /hpf Urine Hyaline Casts 40 /lpf Urine Mucus MANY /lpf Microscopic Urinalysis Comment CULT NOT INDICATED MDM Supervised Visit with JEANETTE: Yes Narrative Course The history, exam, and medical decision-making in the associated mid-level provider note were completed with my assistance. I reviewed and agree with the findings presented. I attest that I had a [id number] encounter with the patient on the same day, and personally performed and documented my assessment and findings in the medical record. *My assessment and Findings: This is a 52-year-old woman presents to the emergency department with cough cold symptoms with some nausea and vomiting associated with the patient looks well. Has a history of HIV, viral load reportedly undetectable, good CD4 count, Looks well on exam. A little bit of left costal margin tenderness I think from violent retching. Feels better after medications and fluids. Abdominal exam is otherwise benign on my repeat assessment. Would recommend supportive treatment. Diagnosis Primary Impression: Nausea & vomiting Qualified Codes: R11.2 - Nausea with vomiting, unspecified Additional Impressions: Diarrhea Qualified Codes: R19.7 - Diarrhea, unspecified Flu-like symptoms Referrals: Primary Care Physician Patient Instructions: General Instructions, Influenza (ED) Additional Instruction: Rest Maintain adequate oral hydration Follow-up with a primary care provider Return immediately with any acute worsening of symptoms Scripts Ondansetron Odt (Zofran Odt) 4 Mg Tab 4 MG SL Q8HR Y for Nausea/Vomiting, #10 TAB 0 Refills Prov: Rachelle Dee GERARDO 08/03/17 Disposition: 01 DISCHARGE HOME Condition: Stable Tung Forbes MD Aug 03, 2017 18:15
[2017-08-03 18:40] VITALS: BP 131/61
== END 2017-08-03 18:42 | disposition home or self-care (01) ==
LOC: NEPE 14:48
DX: R11.2 Nausea with vomiting, unspecified (principal); R19.7 Diarrhea, unspecified; E78.00 Pure hypercholesterolemia, unspecified; I10 Essential (primary) hypertension; Z21 Asymptomatic human immunodeficiency virus [HIV] infection status
CPT/HCPCS: 71045; 80053; 81001; 85025; 87081; 87804; 87880; 96374; 99284; J0131; J2405; J7030